=== PATIENT | male | born 1995 | race American Indian/Alaskan Native ===

== ENCOUNTER 2021-02-22 15:10 | Emergency (ER) | payer SELFPAY ==
[2021-02-22 15:23] VITALS: BP 128/72
--- NOTE | 2021-02-22 17:10 | XRay Report ---
Lumbar spine radiograph, 3 views. HISTORY: Pain COMPARISON: None FINDINGS: No acute fracture or malalignment. Minimal retrolisthesis and mild disc space height loss a t L5-S1. SI joints are intact. Soft tissues are unremarkable. IMPRESSION: No acute process. Signer Name: Lucien Prasad MD Signed: 02/22/2021 5:05 PM Workstation Name: [id number]
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
== END 2021-02-22 18:05 | disposition home or self-care (01) ==
LOC: ED 15:10
DX: S39.012A Strain of muscle, fascia and tendon of lower back, initial encounter (principal); Z79.899 Other long term (current) drug therapy; V49.49XA Driver injured in collision with other motor vehicles in traffic accident, initial encounter; Y93.89 Activity, other specified; Y92.488 Other paved roadways as the place of occurrence of the external cause; Y99.8 Other external cause status
CPT/HCPCS: 72100; 99283